=== PATIENT | male | born 1985 | race Caucasian/White ===

== ENCOUNTER → 2024-11-05 13:51 | Outpatient (REF) | payer BC, SELFPAY | LOC: RAD 13:51 | PROVIDERS: ATTENDING PHYSICIAN Family Medicine | DX: E78.5 Hyperlipidemia, unspecified (principal) | CPT/HCPCS: 75571 ==

== ENCOUNTER → 2025-01-30 16:53 | Outpatient (REF) | payer BC, SELFPAY | LOC: RAD 16:53 | PROVIDERS: ATTENDING PHYSICIAN Family Medicine; OTHER PHYSICIAN Orthopaedic Surgery | DX: S46.012A Strain of muscle(s) and tendon(s) of the rotator cuff of left shoulder, initial encounter (principal) | CPT/HCPCS: 73030 ==